=== PATIENT | male | born 1995 | race Caucasian/White ===

== ENCOUNTER 2018-05-23 13:07 | Emergency (ER) | payer SELFPAY ==
--- NOTE | 2018-05-23 14:10 | EDPHY ---
H & P Time Seen by Provider: 05/23/18 14:09 HPI/ROS: Chief complaint. Abdominal pain, swollen lymph nodes HPI. 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 He has been having left abdominal pain for approximately 1 month. It was found that he had low platelets and increased lymphocytes in [place]. His platelets were as low as 40,000 and more recently 129,000. He in the last several days feels that his left upper quadrant has been painful and full. Feels that his spleen is swollen. He also has some increased cervical adenopathy. No sore throat. No fever. 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 He has cortisone take once out so low. Workup includes a negative HIV abdominal ultrasound about month negative toxoplasmosis andEBV. His concern is for left upper quadrant pain and swollen lymph nodes. ROS 10 systems were reviewed and negative with the exception of the elements mentioned in the history of present illness Past Medical/Surgical History: Autoimmune thrombocytopenia Social History: Single, nonsmoker, no alcohol Smoking Status: Never smoked Physical Exam: General Appearance: Alert well male mild distress vital signs are stable Eyes:[ Pupils equal and round no pallor or injection]. ENT, pharynx slightly injected without exudate. Mucous membranes are moist. There does appear to be anterior and posterior cervical adenopathy Respiratory: [There are no retractions, lungs are clear to auscultation.] Cardiovascular:[ Regular rate and rhythm.] Gastrointestinal: Abdomen is soft with some tenderness left upper quadrant. It does appear that the spleen is Neurological: [Awake and alert, sensory and motor exams grossly normal.] Skin:[ Warm and dry, no rashes.] Musculoskeletal: [Neck is supple nontender.] Extremities [ symmetrical, full range of motion.] Psychiatric:[ Patient is oriented X 3, there is no agitation.] Constitutional: Initial Vital Signs Temperature (C) 36.5 C 05/23/18 13:11 Heart Rate 90 05/23/18 13:11 Respiratory Rate 16 05/23/18 13:11 Blood Pressure 95/71 L 05/23/18 13:11 O2 Sat (%) 98 05/23/18 13:11 O2 Delivery Mode Room Air Allergies/Adverse Reactions: No Known Allergies Allergy (Unverified 05/23/18 13:10) Home Medications: Medication Instructions Recorded NK [No Known Home Meds] 05/23/18 Medical Decision Making - Diagnostics Imaging Results: Imaging Impressions Abdomen Ultrasound 05/23/18 15:26 Impression: 1. Normal ultrasound abdomen complete. 2. No splenomegaly or masses. Findings and recommendations discussed with Emergency Department physician, MADHAV BONILLA at 16:29 hour, 05/23/2018. Final report concurs with initial preliminary interpretation. Abdominal ultrasound shows no evidence for splenomegaly ED Course/Re-evaluation: Re-evaluation 4:40 p.m.. Patient and I discussed - Data Points Laboratory Results: Laboratory Results 05/23/18 14:34 05/23/18 14:34 05/23/18 05/23/18 05/23/18 14:34 14:34 14:34 WBC 5.78 10^3/uL 10^3/uL (3.80-9.50) RBC 5.50 10^6/uL 10^6/uL (4.40-6.38) Hgb 15.8 g/dL g/dL (13.7-17.5) Hct 43.4 % % (40.0-51.0) MCV 78.9 fL L fL (81.5-99.8) MCH 28.7 pg pg (27.9-34.1) MCHC 36.4 g/dL g/dL (32.4-36.7) RDW 12.4 % % (11.5-15.2) Plt Count 107 10^3/uL L 10^3/uL (150-400) MPV 12.0 fL H fL (8.7-11.7) Neut % (Auto) 44.5 % % (39.3-74.2) Lymph % (Auto) 46.4 % H % (15.0-45.0) [place] % (Auto) 6.9 % % (4.5-13.0) Eos % (Auto) 1.0 % % (0.6-7.6) Baso % (Auto) 0.9 % % (0.3-1.7) Nucleat RBC Rel Count 0.0 % % (0.0-0.2) Absolute Neuts (auto) 2.57 10^3/uL 10^3/uL (1.70-6.50) Absolute Lymphs (auto) 2.68 10^3/uL 10^3/uL (1.00-3.00) Absolute Monos (auto) 0.40 10^3/uL 10^3/uL (0.30-0.80) Absolute Eos (auto) 0.06 10^3/uL 10^3/uL (0.03-0.40) Absolute Basos (auto) 0.05 10^3/uL 10^3/uL (0.02-0.10) Absolute Nucleated RBC 0.00 10^3/uL 10^3/uL (0-0.01) Immature Gran % 0.3 % % (0.0-1.1) Immature Gran # 0.02 10^3/uL 10^3/uL (0.00-0.10) PT 15.3 SEC H SEC (12.0-15.0) INR 1.19 H (0.83-1.16) APTT 27.9 SEC SEC (23.0-38.0) Sodium 140 mEq/L mEq/L (135-145) Potassium 4.2 mEq/L mEq/L (3.3-5.0) Chloride 101 mEq/L mEq/L (97-110) Carbon Dioxide 26 mEq/l mEq/l (22-31) Anion Gap 13 mEq/L mEq/L (8-16) BUN 15 mg/dL mg/dL (7-23) Creatinine 0.8 mg/dL mg/dL (0.7-1.3) Estimated GFR > 60 Glucose 95 mg/dL mg/dL (70-100) Calcium 10.1 mg/dL mg/dL (8.5-10.4) Departure - Departure Disposition: Home, Routine, Self-Care Clinical Impression: Thrombocytopenia Condition: Good Instructions: Immune Thrombocytopenia (ED) Additional Instructions: Return for worsening symptoms. Further discussion with your regular physician in [place] to discussed imaging and lab results. I will give you the name of local senior process analyst for follow-up while you are living in [place] Referrals: Kenny Murphy MD [Medical Doctor] - As per Instructions
[2018-05-23 15:07] LABS: INR 1.19 (0.83-1.16); PROTIME(PATIENT) 15.3 SEC (12.0-15.0)
[2018-05-23] MEDS ORDERED: IOPAMIDOL (ISOVUE-300) 100 ML BTL ONE (15:16)
[2018-05-23 15:24] LABS: PLATELET COUNT 107 10^3/uL (150-400)
[2018-05-23 16:48] VITALS: BP 117/69
== END 2018-05-23 17:06 | disposition home or self-care (01) ==
DX: D69.6 Thrombocytopenia, unspecified (principal); R10.12 Left upper quadrant pain
CPT/HCPCS: Q9967